=== PATIENT | male | born 1990 | race Caucasian/White ===

== ENCOUNTER 2018-06-12 00:30 | Emergency (ER) | payer SELFPAY ==
[2018-06-12 00:43] VITALS: BP 131/63
[2018-06-12] MEDS ORDERED: CEPHALEXIN 500 MG CAP PO ONE (00:50)
[2018-06-12] MEDS ORDERED: CEPHALEXIN 500MG PREPACK#4 BTL TAKEHOME ONE (00:50)
[2018-06-12] MEDS ORDERED: DIPHENHYDRAMINE CREAM TP ONE (00:50)
--- NOTE | 2018-06-12 00:50 | EDPHY ---
H & P Stated Complaint: sore on abs-s/p abx Time Seen by Provider: 06/12/18 00:36 HPI/ROS: HPI The patient presents with abdominal wall area of redness and tenderness which has been present since May 30. It started as what he thought was a spider bite, however got bigger in size, more erythematous and painful. He used On demand and had a telemedicine visit. He was diagnosed with a boil and started on Bactrim. He has just finished a 7 day course of this. He thinks that the redness has actually gotten worse since being on Bactrim. He has had no drainage of pus. He has no prior history of similar. He does not have any fevers or chills, nausea or vomiting. REVIEW OF SYSTEMS 10 systems were reviewed and negative with the exception of the elements mentioned in the history of present illness. PMHx: Healthy, no diabetes Soc Hx: Just moved to [place] today from [place] PHYSICAL General Appearance: Alert, no distress Eyes: Pupils equal and round no pallor or injection ENT, Mouth: Mucous membranes moist Respiratory: Breathing comfortably Gastrointestinal: Left lower abdomen below umbilicus has a 6 x 4 cm area of warmth, tenderness, induration without fluctuance with central area of flaking of skin, Abdomen is soft and non-tender, no masses, bowel sounds normal Neurological: A&O, moves all extremities Skin: Warm and dry, no rashes Extremities: symmetrical, full range of motion Psychiatric: Patient is oriented X 3, there is no agitation Source: Patient Exam Limitations: No limitations - Personal History Current Tetanus Diphtheria and Acellular Pertussis (TDAP): Yes - Medical/Surgical History Hx Asthma: No Hx Chronic Respiratory Disease: No Hx Diabetes: No Hx Cardiac Disease: No Hx Renal Disease: No Hx Cirrhosis: No Hx Alcoholism: No Hx HIV/AIDS: No Other PMH: denies - Social History Smoking Status: Never smoked Constitutional: Initial Vital Signs Temperature (C) 36.6 C 06/12/18 00:39 Heart Rate 89 06/12/18 00:39 Respiratory Rate 16 06/12/18 00:39 Blood Pressure 131/63 H 06/12/18 00:39 O2 Sat (%) 97 06/12/18 00:39 O2 Delivery Mode Room Air Allergies/Adverse Reactions: No Known Allergies Allergy (Unverified 06/12/18 00:38) Home Medications: Medication Instructions Recorded Cephalexin [Keflex (*)] 500 mg PO Q6H #28 cap 06/12/18 Sulfamethox/Tmp 06/12/18 Medical Decision Making Differential Diagnosis: 28-year-old male with about 2 weeks of progressive area of erythema, warmth, induration on his abdomen. He has no systemic signs of illness. He feels this began as a spider bite and has progressed. It is not improved with Bactrim. I feel he may have MSSA as cause of his cellulitis. I will give him a course of Keflex to provide coverage for this. I do not see any sign of abscess here. This does not appear to be contact dermatitis I have considered both of these as diagnostic possibilities. We discussed return precautions and I will give him referral to primary care here. Departure - Departure Disposition: Home, Routine, Self-Care Clinical Impression: Cellulitis Qualifiers: Site of cellulitis: trunk Site of cellulitis of trunk: abdominal wall Qualified Code(s): L03.311 - Cellulitis of abdominal wall Condition: Good Instructions: Cellulitis (ED) Additional Instructions: I recommend you take the antibiotic as prescribed. It is okay to get it wet in the shower or the bath. Please return to the emergency department if your worse in any way. Referrals: Trevor Lam DO [Doctor of Osteopathy] - As per Instructions Prescriptions: Cephalexin [Keflex (*)] 500 mg PO Q6H #28 cap
== END 2018-06-12 01:15 | disposition home or self-care (01) ==
DX: L03.311 Cellulitis of abdominal wall (principal)